=== PATIENT | female | born 1985 | race Caucasian/White ===

== ENCOUNTER → 2020-01-23 | Outpatient (CLI) | payer MEDICAID ==
[~2020-01-23] MED LIST: NONE PER PT
== END | disposition home or self-care (01) ==
LOC: STAR 14:28
PROVIDERS: ATTEND Anesthesiology
DX: Z01.812 Encounter for preprocedural laboratory examination (principal); Z20.828 Contact with and (suspected) exposure to other viral communicable diseases; S83.512D Sprain of anterior cruciate ligament of left knee, subsequent encounter
CPT/HCPCS: 36415; 87635

== ENCOUNTER 2020-01-26 05:16 | Day surgery (SDC) | payer MEDICAID ==
[~2020-01-26] VITALS: Ht 170.2 cm; Wt 87.0 kg
[2020-01-26] MEDS ORDERED: LACTATED RINGERS 1,000 ML IV SCH (05:53)
[2020-01-26] MEDS ORDERED: NONE PER PT (05:54)
[2020-01-26 05:57] VITALS: BP 91/55
[2020-01-26] MEDS ORDERED: CHLORHEXIDINE 15 ML UDC MM ONE (06:00)
[2020-01-26 06:12] LABS: HCG UR SG 1.024 (1.003-1.030)
[2020-01-26] MEDS ORDERED: FENTANYL PF 100 MCG/2ML ONE ×3 (06:26→08:52)
[2020-01-26] MEDS ORDERED: ROPIvacaine/PF 0.5%, 30 ML ONE ×2 (06:26)
[2020-01-26] MEDS ORDERED: LIDOCAINE/PF 1%-EPI 1:200K, 30 ML ONE (06:26)
[2020-01-26] MEDS ORDERED: PROPOFOL 10 MG/ML, 20ML ONE ×2 (06:28→07:10)
[2020-01-26] MEDS ORDERED: SCOPOLAMINE 1MG PATCH TD ONE (06:44)
[2020-01-26] MEDS ORDERED: SCOPOLAMINE 1MG PATCH TD SCH (07:00)
[2020-01-26] MEDS ORDERED: DEXAMETHASONE 4 MG/ML, 1ML ONE ×3 (07:13)
[2020-01-26] MEDS ORDERED: CEFAZOLIN 1,000 MG ONE ×2 (07:14)
[2020-01-26] MEDS ORDERED: ONDANSETRON 2MG/ML, 2ML IVPush PRN ×2 (07:30)
[2020-01-26] MEDS ORDERED: OXYcodone 5 MG/5 ML ORAL.SOL UDC PO PRN ×2 (07:30)
[2020-01-26] MEDS ORDERED: PROMETHAZINE 25 MG/ML, 1ML IVPush PRN ×2 (07:30)
[2020-01-26] MEDS ORDERED: ONDANSETRON 2MG/ML, 2ML ONE ×2 (08:30→08:52)
[2020-01-26] MEDS ORDERED: OXYcodone 5 MG/5 ML ORAL.SOL UDC ONE (08:53)
[2020-01-26] MEDS: FENTANYL PF 100 MCG/2ML IV PRN ×3 (08:56→09:20)
== END 2020-01-26 11:50 | disposition home or self-care (01) ==
LOC: OUT 05:16
PROVIDERS: ATTEND Orthopaedic Surgery
DX: S83.512A Sprain of anterior cruciate ligament of left knee, initial encounter (principal); Z20.828 Contact with and (suspected) exposure to other viral communicable diseases; S83.212A Bucket-handle tear of medial meniscus, current injury, left knee, initial encounter; S83.282A Other tear of lateral meniscus, current injury, left knee, initial encounter; M22.42 Chondromalacia patellae, left knee; F17.210 Nicotine dependence, cigarettes, uncomplicated; Z79.891 Long term (current) use of opiate analgesic; Z79.899 Other long term (current) drug therapy; Z82.49 Family history of ischemic heart disease and other diseases of the circulatory system; X50.1XXA Overexertion from prolonged static or awkward postures, initial encounter; Y93.56 Activity, jumping rope; Y92.481 Parking lot as the place of occurrence of the external cause; Y99.8 Other external cause status
CPT/HCPCS: 29881; 29882; 29888; 64447; 81025; 87635; C1713; C1762; J0690; J1100; J2405; J2704; J2795; J3010; J3490; J7120